=== PATIENT | female | born 2000 | race Caucasian/White ===

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

== ENCOUNTER 2021-02-01 09:54 | Emergency (ER) | payer OTHER ==
[~2021-02-01] VITALS: Ht 165.1 cm; Wt 75.0 kg
[~2021-02-01 09:54] MED LIST changes: +ASPI-1450 PO; -NO MEDS; -NOCURR
[2021-02-01 09:55] VITALS: BP 118/67
[2021-02-01] MEDS ORDERED: IBUPROFEN 600 MG TABLET PO ONE (10:45)
== END 2021-02-01 11:47 | disposition home or self-care (01) ==
LOC: EMS 09:54
DX: J06.9 Acute upper respiratory infection, unspecified (principal); M54.50 Low back pain, unspecified; H92.02 Otalgia, left ear; F17.210 Nicotine dependence, cigarettes, uncomplicated; Z20.822 Contact with and (suspected) exposure to COVID-19
CPT/HCPCS: 99283; U0003

== ENCOUNTER 2021-03-17 14:33 | Emergency (ER) | payer OTHER | END 2021-03-17 14:36 | disposition left against medical advice (07) | LOC: EMS 14:36 | DX: M79.646 Pain in unspecified finger(s) (principal); Z53.21 Procedure and treatment not carried out due to patient leaving prior to being seen by health care provider ==

== ENCOUNTER 2022-10-25 21:54 | Emergency (ER) | payer OTHER ==
[~2022-10-25] VITALS: Ht 165.1 cm; Wt 85.9 kg
[2022-10-25 22:34] VITALS: TEMP 98.3
[2022-10-26] MEDS ORDERED: BACL10TA PO (00:52)
[2022-10-26] MEDS ORDERED: IBUP-1554 PO (00:52)
[2022-10-26] MEDS ORDERED: ACET-2080 PO (00:52)
[2022-10-26] MEDS ORDERED: ACETAMINOPHEN/CODEINE 300-30 MG TABLET PO ONE (01:00)
[2022-10-26] MEDS ORDERED: IBUPROFEN 600 MG TABLET PO ONE (01:00)
[2022-10-26 01:06] VITALS: BP 117/64; PULSE 71; RESP 15
== END 2022-10-26 01:12 | disposition home or self-care (01) ==
LOC: EMS 21:55
DX: S50.11XA Contusion of right forearm, initial encounter (principal); F17.210 Nicotine dependence, cigarettes, uncomplicated; W31.89XA Contact with other specified machinery, initial encounter; Y93.89 Activity, other specified; Y92.89 Other specified places as the place of occurrence of the external cause; Y99.0 Civilian activity done for income or pay
CPT/HCPCS: 99283